=== PATIENT | female | born 1955 | race Caucasian/White ===

== ENCOUNTER 2017-08-29 18:36 | Emergency (ER) | payer OTHER ==
[~2017-08-29] VITALS: Ht 154.9 cm; Wt 90.7 kg
[~2017-08-29 18:36] MED LIST: LEVO150T PO; METR500T PO; QUET100T PO
--- NOTE | 2017-08-29 20:22 | NUR ---
Dr. Cohen at bedside for MSE.
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
[2017-08-29 20:47] LABS: BASOPHILS # (AUTO) 0.1 K/uL (0.0-8.0); BASOPHILS % (AUTO) 0.8 % (0.0-2.0); EOSINOPHILS # (AUTO) 0.3 K/uL (0.0-0.7); EOSINOPHILS % (AUTO) 4.1 % (0.0-7.0); HEMATOCRIT 41.1 % (31.2-41.9); HEMOGLOBIN 13.8 g/dL (10.9-14.3); LYMPHOCYTES # (AUTO) 2.4 K/uL (20.0-40.0); LYMPHOCYTES % (AUTO) 29.4 % (20.5-51.5); MEAN CORPUSCULAR HEMOGLOBIN 29.1 uug (24.7-32.8); MEAN CORPUSCULAR HGB CONC 34 g/dL (32.3-35.6); MEAN CORPUSCULAR VOLUME 86.5 fL (75.5-95.3); MONOCYTES # (AUTO) 0.7 K/uL (2.0-10.0); MONOCYTES % (AUTO) 9.2 % (0.0-11.0); NEUTROPHILS # (AUTO) 4.5 K/uL (1.8-8.9); NEUTROPHILS % (AUTO) 56.5 % (38.5-71.5); PLATELET COUNT (AUTO) 257 K/uL (179-408); RED BLOOD CELL COUNT(AUTO) 4.75 MIL/uL (3.63-4.92)
--- NOTE | 2017-08-29 20:52 | NUR ---
Pt out of ER for CT.
[2017-08-29 20:58] LABS: CARBON DIOXIDE 29 mmol/L (21-32); CHLORIDE 100 mmol/L (98-107); GLUCOSE 98 mg/dL (74-106); POTASSIUM 3.9 mmol/L (3.5-5.1); UREA NITROGEN, BLOOD 15 mg/dL (7-18)
[2017-08-29 21:02] LABS: ETHANOL < 3 MG/DL (0-0)
[2017-08-29 21:04] LABS: ACETAMINOPHEN < 2.0 ug/mL (10-30); ALANINE AMINOTRANSFERASE 48 U/L (14-59); ALKALINE PHOSPHATASE 64 U/L (50-136); ASPARTATE AMINOTRANSFERASE 26 U/L (15-37); BILIRUBIN,DIRECT 0.1 mg/dL (0.0-0.2); BILIRUBIN,TOTAL 0.4 mg/dL (0.2-1.0); TOTAL PROTEIN, SERUM 8.2 g/dL (6.4-8.2)
[2017-08-29 21:05] LABS: *BILIRUBIN,URIN NEGATIVE (NEGATIVE); *BLOOD, URINE NEGATIVE (NEGATIVE); *CLARITY,URINE CLEAR (CLEAR); *COLOR,URINE YELLOW (YELLOW); *KETONES,URINE NEGATIVE (NEGATIVE); *PROTEIN,URINE NEGATIVE (NEGATIVE); *UROBILINOGEN,URINE 0.2 E.U./dl (NORMAL); LEUKOCYTE ESTERASE ,URINE NEGATIVE (NEGATIVE); NITRITE, URINE NEGATIVE (NEGATIVE); UGLUCOSE NEGATIVE (NEGATIVE)
--- NOTE | 2017-08-29 21:08 | NUR ---
Notified Fitz Orozco [employer]ILY [employer] SPECIALIST for patient psych evaluation.
--- NOTE | 2017-08-29 21:10 | NUR ---
Patient back to ER from CT.
[2017-08-29 21:12] LABS: RBC,URINE 0-3 /HPF (0-3); WBC,URINE 0-3 /HPF (0-3)
[2017-08-29 21:13] LABS: BACTERIA,URINE NONE SEEN /HPF (NONE SEEN)
[2017-08-29 21:14] LABS: SQUAMOUS EPITHELIAL CELL,UR FEW /HPF (NONE SEEN)
[2017-08-29 21:19] LABS: *AMPHETAMINE, URINE NEGATIVE (NEGATIVE); *BARBITURATE, URINE NEGATIVE (NEGATIVE); *CANNABINOID, URINE NEGATIVE (NEGATIVE); *COCCAINE, URINE NEGATIVE (NEGATIVE); *OPIATE, URINE NEGATIVE (NEGATIVE); *PHENCYCLIDINE SCREEN,URINE NEGATIVE (NEGATIVE)
--- NOTE | 2017-08-29 21:30 | NUR ---
Fitz Orozco arrived to ER for patient psych evaluation.
--- NOTE | 2017-08-29 21:45 | NUR ---
Fitz Orozco at bedside for psych evaluation.
--- NOTE | 2017-08-29 22:21 | NUR ---
Patient discharged to home in stable conditon. Written and verbal after care instructions given. Patient verbalizes understanding of instructions. Patient ambulated out of ER with steady gait with dog, VSS, all belongings taken, no acute signs of distress.
[2017-08-29 22:24] VITALS: BP 148/89
== END 2017-08-29 22:20 | disposition home or self-care (01) ==
LOC: ER 18:36
DX: H53.16 Psychophysical visual disturbances (principal); E03.9 Hypothyroidism, unspecified; J45.909 Unspecified asthma, uncomplicated; Z88.2 Allergy status to sulfonamides; Z88.1 Allergy status to other antibiotic agents; Z79.899 Other long term (current) drug therapy
CPT/HCPCS: 36415; 70450; 80307; 84443; 84479; 85025; A4663; G0480; G0480-TC

== ENCOUNTER 2019-09-20 18:38 | Inpatient (IN) | payer OTHER ==
[~2019-09-20] VITALS: Ht 162.6 cm; Wt 99.3 kg
[2019-09-20] MEDS ORDERED: IV NORMAL SALINE 1000 ML BAG IV ONE (19:00)
[2019-09-20] MEDS ORDERED: CLINDAMYCIN PHOSPHATE IV 900 MG in IV DEXTROSE 5% 100 ML IV ONE (19:00)
--- NOTE | 2019-09-20 19:00 | NUR ---
Dr. Cohen at bedside for MSE.
[2019-09-20] MEDS ORDERED: ONDANSETRON 4 MG/2 ML VIAL IV ONE (19:15)
[2019-09-20] MEDS ORDERED: MORPHINE SULFATE 4 MG/1 ML DISP.SYRIN IV ONE (19:15)
[2019-09-20] MEDS ORDERED: MORPHINE SULFATE 4 MG/1 ML DISP.SYRIN ONE (19:21)
[2019-09-20] MEDS ORDERED: CLINDAMYCIN 900MG/D5W 100ML IVPB **ER PYXIS ONLY IJ ONE (19:21)
[2019-09-20] MEDS ORDERED: ONDANSETRON 4 MG/2 ML VIAL ONE (19:21)
[2019-09-20 19:46] LABS: BASOPHILS # (AUTO) 0.1 K/uL (0.0-8.0); BASOPHILS % (AUTO) 1.2 % (0.0-2.0); EOSINOPHILS # (AUTO) 0.4 K/uL (0.0-0.7); EOSINOPHILS % (AUTO) 5.2 % (0.0-7.0); HEMOGLOBIN 13.6 g/dL (10.9-14.3); LYMPHOCYTES # (AUTO) 2.4 K/uL (20.0-40.0); LYMPHOCYTES % (AUTO) 32.2 % (20.5-51.5); MEAN CORPUSCULAR HEMOGLOBIN 29.3 uug (24.7-32.8); MEAN CORPUSCULAR HGB CONC 34 g/dL (32.3-35.6); MEAN CORPUSCULAR VOLUME 86.5 fL (75.5-95.3); MONOCYTES # (AUTO) 0.7 K/uL (2.0-10.0); MONOCYTES % (AUTO) 8.9 % (0.0-11.0); NEUTROPHILS % (AUTO) 52.5 % (38.5-71.5); PLATELET COUNT (AUTO) 294 K/uL (179-408); RED BLOOD CELL COUNT(AUTO) 4.62 MIL/uL (3.63-4.92); WHITE BLOOD COUNT (AUTO) 7.6 K/uL (3.8-11.8)
[2019-09-20 19:56] LABS: CREATININE 0.9 mg/dL (0.6-1.3); POTASSIUM 3.6 mmol/L (3.5-5.1)
[2019-09-20 20:02] LABS: BILIRUBIN,DIRECT 0.1 mg/dL (0.0-0.2); BILIRUBIN,TOTAL 0.3 mg/dL (0.2-1.0); TOTAL PROTEIN, SERUM 8.1 g/dL (6.4-8.2)
--- NOTE | 2019-09-20 20:04 | NUR ---
Dr. Cohen on panel call with Saba Payton NP. Patient accepted for admission to [facility], diagnosis: left foot cellulitis.
--- NOTE | 2019-09-20 20:34 | NUR ---
Report given to Lela NAGEL Medsurg.
--- NOTE | 2019-09-20 20:40 | NUR ---
Admitted a 64 years old female with Diagnosis of Cellulitis. Patient reported she had a spider bite on left plantar area. Skin intact on affected area. No bite guardado noted. Patient reported pain on left lower extremity. Was given Morphine 4mg IV at the ER prior to arrival at the unit. Pain at 6/10 at this time and slightly tolerable per pt. IV site on right AC intact and patent. Denies any SOB. Routine admission care done. Plan of care initiated. Safety measure initiated and call vidal within reached. Continue to monitor.
[2019-09-20] MEDS ORDERED: MAGNESIUM HYDROXIDE 30 ML LIQUID UDC PO PRN (21:00)
[2019-09-20] MEDS ORDERED: ACETAMINOPHEN 325 MG TABLET PO PRN (21:00)
[2019-09-20] MEDS ORDERED: HYDROCODONE/APAP 5-325MG TABLET PO PRN (21:00)
[2019-09-20] MEDS ORDERED: Z GUARD REMEDY PASTE 57 GM TUBE TOP PRN (21:00)
[2019-09-20] MEDS ORDERED: ZOLPIDEM 5 MG TABLET PO PRN (21:00)
[2019-09-20] MEDS ORDERED: ONDANSETRON 4 MG/2 ML VIAL IV PRN (21:00)
[2019-09-20] MEDS: ENOXAPARIN SODIUM 40 MG/0.4 ML DISP.SYRIN SQ SCH (21:51)
[2019-09-20] MEDS: QUETIAPINE FUMARATE 100 MG TABLET PO SCH (22:12)
[2019-09-20 22:15] VITALS: BP 115/51
[2019-09-21] MEDS ORDERED: CLINDAMYCIN PHOSPHATE 600 MG/4 ML VIAL ONE (00:50)
[2019-09-21 04:42] VITALS: BP 119/54
[2019-09-21] MEDS: CLINDAMYCIN PHOSPHATE IV 600 MG in IV DEXTROSE 5% 100 ML IV SCH ×3 (05:06→21:00)
[2019-09-21 05:40] LABS: BASOPHILS # (AUTO) 0.1 K/uL (0.0-8.0); EOSINOPHILS # (AUTO) 0.4 K/uL (0.0-0.7); EOSINOPHILS % (AUTO) 6.1 % (0.0-7.0); HEMATOCRIT 37.1 % (31.2-41.9); HEMOGLOBIN 12.2 g/dL (10.9-14.3); LYMPHOCYTES # (AUTO) 2.8 K/uL (20.0-40.0); LYMPHOCYTES % (AUTO) 47.4 % (20.5-51.5); MEAN CORPUSCULAR HEMOGLOBIN 28.8 uug (24.7-32.8); MEAN CORPUSCULAR HGB CONC 33 g/dL (32.3-35.6); MEAN CORPUSCULAR VOLUME 87.7 fL (75.5-95.3); MONOCYTES # (AUTO) 0.6 K/uL (2.0-10.0); MONOCYTES % (AUTO) 9.6 % (0.0-11.0); NEUTROPHILS # (AUTO) 2.1 K/uL (1.8-8.9); NEUTROPHILS % (AUTO) 35.9 % (38.5-71.5); PLATELET COUNT (AUTO) 237 K/uL (179-408); RED BLOOD CELL COUNT(AUTO) 4.24 MIL/uL (3.63-4.92); WHITE BLOOD COUNT (AUTO) 5.9 K/uL (3.8-11.8)
[2019-09-21 06:00] LABS: MAGNESIUM 2.1 mg/dL (1.8-2.4); PHOSPHOROUS 5.7 mg/dL (2.5-4.9); POTASSIUM 3.9 mmol/L (3.5-5.1)
--- NOTE | 2019-09-21 06:07 | NUR ---
Slept well last night. In no acute distress. No adverse reaction noted from IV ABX. IV on right AC remains intact and patent. [place] 5/325mg PO given PRN for complain of pain on left LE and effective. Needs attended to and met. Safety measure maintained and call vidal within reached.
--- NOTE | 2019-09-21 10:30 | NUR ---
PATIENT SEEN AND EXAMINED BY HILARY GRAY DNP WITH ORDER FOR PHYSICIAN CONSULT AND NOTED
[2019-09-21 11:30] VITALS: BP 133/64
[2019-09-21] MEDS: LEVOTHYROXINE SODIUM 150 MCG TABLET PO SCH (11:42)
--- NOTE | 2019-09-21 14:00 | NUR ---
PATIENT AWARE THAT HER NORCO WAS DISCONTINUED OFFERED HIM TYLENOL STATED DID NOT WANT THIS AT THIS TIME WILL CONTINUE TO OBSERVE AND PROVIDE SAFE AND THERAPEUTIC ENVIRONMENT.
--- NOTE | 2019-09-21 14:16 | NUR ---
YULI TAM HERE SEE PATIENT WITH NO NEW ORDERS AT THIS TIME
--- NOTE | 2019-09-21 14:48 | NUR ---
CALL RECEIVED FROM YULI TAM STATED ORDERED XRAY OF THE LEFT FOOT AND NOTED.
--- NOTE | 2019-09-21 15:46 | NUR ---
PATIENT REQUESTING FOR NORCO FOR PAIN BROUGHT HER NORCO GAVE IT TO HER BUT SHE INFORMED ME THAT SHE ALREADY TOOK A NORCO STATED FROM HER PURSE SO I INFORMED HER THAT SHE IS NOT ALLOWED TO HAVE MEDICATIONS IN HER BAG ASKED HER TO GIVE ME ALL THE MEDICATIONS IN HER BAG FOR SAFE KEEPING THE HOSPITAL PROTOCOL BUT SHE REFUSED TO GIVE ME HER BAG TO CHECK BUT STATED THAT THE NORCO SHE TOOK WAS HER LAST PILL AND SHE HAS NO MORE SO NORCO THAT I BROUGHT TO GIVE HER WAS WASTED WITHNESSED BY ANOTHER NURSE.
[2019-09-21] MEDS ORDERED: QUETIAPINE FUMARATE 100 MG TABLET PO SCH (18:00)
--- NOTE | 2019-09-21 18:00 | NUR ---
RESTING WITH NO C/O AT THIS TIME WILL CONTINUE TO OBSERVE AND PROVIDE COMFORT NEEDED
[2019-09-21] MEDS: ATORVASTATIN 10 MG TABLET PO SCH (21:00)
--- NOTE | 2019-09-21 21:00 | NUR ---
PATIENT REQUESTED FOR PAIN MEDICATION GIVEN ORDERED AND STATED HELPFUL.REMAIN ON IV ATB ORDERED WITH NO ADVERSE OR ALLERGIC REACTIONS ORDERED.CALL LIGHTS AND PERSONAL BELONGINGS PLACED WITHIN EASY REACH MADE COMFORTABLE WILL CONTINUE TO OBSERVE.
[2019-09-21] MEDS: HYDROCODONE/APAP 5-325MG TABLET PO PRN (21:01)
[2019-09-21] MEDS: ENOXAPARIN SODIUM 40 MG/0.4 ML DISP.SYRIN SQ SCH (21:02)
[2019-09-21 21:06] VITALS: BP 123/70
[2019-09-21] MEDS: QUETIAPINE FUMARATE 100 MG TABLET PO SCH (23:55)
[2019-09-22] MEDS: CLINDAMYCIN PHOSPHATE IV 600 MG in IV DEXTROSE 5% 100 ML IV SCH ×3 (05:39→22:01)
[2019-09-22] MEDS: HYDROCODONE/APAP 5-325MG TABLET PO PRN ×4 (06:34→22:50)
[2019-09-22] MEDS: LEVOTHYROXINE SODIUM 150 MCG TABLET PO SCH ×2 (06:36→10:04)
--- NOTE | 2019-09-22 06:39 | NUR ---
AWOKEN PATIENT FOR IV ANTIBIOTICS ORDERED SHE REQUESTED FOR PAIN MEDICATIONS GIVEN ORDERED AND SHE REFUSED HER SYNTHROID STATED NOT READY TO TAKE IT YET WILL TALK TO HER DOCTOR FIRST BEFORE SHE ACCEPTS IT HER RIGHTS TO REFUSE RESPECTED.
--- NOTE | 2019-09-22 07:40 | NUR ---
patient is in bed, sleeping, no distress noted
--- NOTE | 2019-09-22 10:32 | NUR ---
PATIENT REQUESTED SYNTHROID TO BE GIVEN, SINCE SHE DID NOT WANT TO TAKE IN THE MORNING SCHEDULED TIME, TEACHING PROVIDED TO PATIENT TO TAKE SYNTHROID IN THE MORNING, ON EMPTY STOMACH TO AVOID THE ERRATIC ABSORPTION OF HORMONE, OR FOR BETTER ABSORPTION, PATIENT VERBALIZED UNDERSTANDING OF IT, HOWEVER STATED THAT SHE ALWAYS TAKE IT AT THIS TIME. Addendum: 09/22/19 at 1057 by DANDY ODONNELL RN, RN MD CHAND
--- NOTE | 2019-09-22 10:57 | NUR ---
PATIENT REQUESTED FOR REGULAR DIET,AND MOM, ORDER NOTED. APPROVED WITH
[2019-09-22 12:00] VITALS: BP 105/51
[2019-09-22] MEDS: MELOXICAM 7.5 MG TABLET PO SCH ×2 (12:00→12:14)
[2019-09-22] MEDS: MAGNESIUM HYDROXIDE 30 ML LIQUID UDC PO PRN (12:34)
--- NOTE | 2019-09-22 12:45 | NUR ---
PATIENT REQUESTED FOR PAIN MEDICATION, OFFERED AND THEN REFUSED, REFUSED MOBIC WELL, PATIENT STATED SHE KNOWS HER MEDICATIONS VERY WELL, AND WOULD NOT TAKE MOBIC. PATIENT RIGHT TO REFUSE RESPECTED
[2019-09-22] MEDS ORDERED: SENNOSIDES 1 TABLET PO PRN (14:30)
[2019-09-22] MEDS ORDERED: MIRALAX 17 GM POWD.PACK PO PRN (14:30)
--- NOTE | 2019-09-22 14:50 | NUR ---
patient is alert, oriented x4, verbally responsive, no sob, resp even nonlabored,skin warm and dry to touch, patient is very needy, manupulative, requests frequent medication for multiple purposes, such as patient says she is constipated, Milk of magnesium is administered as ordered, right away requesting for double dose of miralax and 4 senna. explained to patient to follow MD instructions. patient stated, " I know my body and I take double dose of it" explained to patient that medication only be given as ordered by MD and wait for effectiveness.
[2019-09-22 16:00] VITALS: BP 125/56
[2019-09-22] MEDS: QUETIAPINE FUMARATE 100 MG TABLET PO SCH (20:48)
[2019-09-22] MEDS: ATORVASTATIN 10 MG TABLET PO SCH (20:48)
[2019-09-22] MEDS: ENOXAPARIN SODIUM 40 MG/0.4 ML DISP.SYRIN SQ SCH (20:49)
[2019-09-22] MEDS ORDERED: LACTULOSE 20 G/30 ML LIQUID UDC PO PRN (21:00)
[2019-09-22 21:08] VITALS: BP 125/43
[2019-09-22] MEDS: CULTURELLE CAPSULE PO SCH (21:52)
[2019-09-23] MEDS: HYDROCODONE/APAP 5-325MG TABLET PO PRN ×4 (05:17→22:52)
[2019-09-23] MEDS: CLINDAMYCIN PHOSPHATE IV 600 MG in IV DEXTROSE 5% 100 ML IV SCH (06:16)
[2019-09-23 06:22] VITALS: BP 154/79
--- NOTE | 2019-09-23 07:00 | NUR ---
Received patient in bed complaining of constant urination and no bowel movement. Patient requested urinalysis to rule out UTI and lactulose to relive constipation as well as probiotic to take daily. Saba Rocha made aware, orders endorsed. Patient is Axox4, verbally responsive and makes needs known. No signs of SOB, distress noted. Patient is concerned that she is urinated frequently no burning sensation. Patient states her "kidneys are over working." Patient skin is clean warm and dry to touch. Patient is very particular when her medications are given, wants it at different times. IV antibiotic infused and medications taken. Patient complained of painx2, gave [place], effective. All needs attended to, kept comfortable. Will continue to monitor. Will endorse report to next shift.
--- NOTE | 2019-09-23 08:00 | NUR ---
VSS 98.1-79-18 BP 154/79. SATS 98% ON ROOM AIR. COLOR GOOD AND GENERAL APPEARANCE STABLE. PATIENT IS OOB WITH BRPS WITHOUT ASSISTANCE. PATIENT IS OBVIOUSLY MORBIDLY OBESE BUT SKIN IS WARM, DRY, AND INTACT WITH #20 ANGIO TO RIGHT AC. ABDOMEN SOFTLY DISTENDED WITH +BOWEL SOUNDS. LUNGS CTA TO BUL. NO JVD WITH ALL PERIPHERAL PULSES EASILY PALPABLE. DENIES PAINS. URINE UA OBTAINED AND SENT TO LAB FOR PENDING STATUS. PATIENT CURRENTLY DENIES BREAKFAST AND STATES THAT WHE WANTS TO EAT LATER. DENIES PAINS AND SHOWS NO SIGNS OF ACUTE CARDIAC/RESPIRATORY DISTRESS OR SUPPRESSION.
--- NOTE | 2019-09-23 09:00 | NUR ---
NURSE OFFERED AM MED ON TIME BUT PATIENT REFUSES AT THIS TIME AND WON'T EAT BREAKFAST. NURSE WILL REASSESS PATIENT'S NEEDS IN ONE HOUR. PATIENT ENCOURAGED TO CALL NURSE FOR ANY NEEDS. PATIENT SHOWS NO SIGNS OF DISTRESS.
[2019-09-23 09:50] LABS: *BILIRUBIN,URIN NEGATIVE (NEGATIVE); *BLOOD, URINE NEGATIVE (NEGATIVE); *CLARITY,URINE CLEAR (CLEAR); *COLOR,URINE YELLOW (YELLOW); *KETONES,URINE NEGATIVE (NEGATIVE); *UROBILINOGEN,URINE 0.2 E.U./dl (NORMAL); LEUKOCYTE ESTERASE ,URINE NEGATIVE (NEGATIVE); NITRITE, URINE NEGATIVE (NEGATIVE); UGLUCOSE NEGATIVE (NEGATIVE)
[2019-09-23] MEDS: CULTURELLE CAPSULE PO SCH ×2 (10:20→20:33)
--- NOTE | 2019-09-23 10:29 | NUR ---
PATIENT TAKES CULTURELLE CAPSULE NOW AND REQUESTS MEDS FOR CONSTIPATION. NURSE GIVES SENOKOT 2 TABS PO AND LACTULOSE 30 CC PO PRN FOR CONSTIPATION. PATIENT ALSO C/O 7/10 GENERALIZED PAIN- NURSE GIVES HER NORCO 5/325 MG PO (2 TABS) PO PRN. PATIENT SEEMS TO LIKE PRIVACY AND WANTS STAFF TO ENTER ROOM ONLY NEEDED. PATIENT FURTHER STATES THAT SHE WANTS TO TAKE MOBIC WITH SYNTHROID AT 11:00. NURSE WILL COMPLY.
[2019-09-23] MEDS: LEVOTHYROXINE SODIUM 150 MCG TABLET PO SCH (11:25)
[2019-09-23] MEDS: MELOXICAM 7.5 MG TABLET PO SCH (11:26)
[2019-09-23 12:00] VITALS: BP_SYST 122; BP_SYST 150; BP_DIAS 48; BP_DIAS 84
--- NOTE | 2019-09-23 12:00 | NUR ---
VSS 98.0-82-20 BP 150/84. SATS 98% ON ROOM AIR. PATIENT RESTS QUIETLY. RECEIVED MOBIC AND SYNTHROID AT APPROX. 11:20 A.M. PATIENT HAS HAD NO NEW C/O PAINS. STABLE.
[2019-09-23] MEDS: MAGNESIUM HYDROXIDE 30 ML LIQUID UDC PO PRN (15:31)
[2019-09-23 16:00] VITALS: BP 149/61
--- NOTE | 2019-09-23 16:00 | NUR ---
VSS 97.8-72-22 BP 149/61. SATS 95% ON ROOM AIR. PATIENT DID HAVE A SMALL BM AND FEELS SHE NEEDS TO HAVE MORE. NURSE ALSO GAVE MOM THIS AFTERNOON. NO SIGNS OF DISTRESS. STABLE.
--- NOTE | 2019-09-23 18:00 | NUR ---
NURSE REPEATED NORCO 5/325 MG PO PRN AT 17:00 FOR THE RELIEF OF PAIN. REMAINS STABLE. ATE 100% OF DINNER WITHOUT DIFFICULTY.
--- NOTE | 2019-09-23 20:00 | NUR ---
RECEIVED PATIENT AWAKE IN BED. A/O X4. DENIES ANY PAIN AT THIS TIME. NO RESP. DISTRESS NOTED. VS WNL. HEPLOCK INTAKE AND PATENT NOTED TO RIGHT AC #20 GAUGE. CALL LIGHT IN REACH. ALL NEEDS ATTENDED. WILL CONTINUE TO MONITOR AND ASSESS.
[2019-09-23 20:04] VITALS: BP 122/56
[2019-09-23] MEDS: ENOXAPARIN SODIUM 40 MG/0.4 ML DISP.SYRIN SQ SCH (20:32)
[2019-09-23] MEDS: QUETIAPINE FUMARATE 100 MG TABLET PO SCH (20:33)
[2019-09-23] MEDS: ATORVASTATIN 10 MG TABLET PO SCH (20:33)
[2019-09-23] MEDS: DOXYCYCLINE HYCLATE 100 MG TABLET PO SCH (20:34)
[2019-09-23] MEDS ORDERED: diphenhydrAMINE 25 MG CAP PO PRN (21:00)
[2019-09-24 04:04] VITALS: BP 122/49
[2019-09-24] MEDS: HYDROCODONE/APAP 5-325MG TABLET PO PRN ×2 (04:55→11:06)
--- NOTE | 2019-09-24 06:33 | NUR ---
PATIENT RESTING IN BED. NO C/O PAIN AT THIS TIME. PATIENT WAS GIVEN NORCO AT 0500 FOR LEFT FOOT PAIN. VSS. SLEPT AT INTERVALS. PATIENT VERY NEEDY THROUGHOUT THE NIGHT. CALL LIGHT IN REACH. ALL NEEDS ATTENDED. WILL CONTINUE TO MONITOR AND ASSESS.
--- NOTE | 2019-09-24 07:30 | NUR ---
PATIENT SLEEPING IN BED; PATIENT WILL CONTINUE TO BE MONITORED.
[2019-09-24] MEDS: CULTURELLE CAPSULE PO SCH ×2 (08:52→11:06)
[2019-09-24] MEDS: MELOXICAM 7.5 MG TABLET PO SCH (08:52)
[2019-09-24] MEDS: DOXYCYCLINE HYCLATE 100 MG TABLET PO SCH ×2 (09:00→11:08)
[2019-09-24 11:35] VITALS: BP 121/50
[2019-09-24] MEDS ORDERED: ATOR10TA PO (11:44)
[2019-09-24] MEDS ORDERED: DIPH25TA27 PO (11:44)
[2019-09-24] MEDS ORDERED: DOXY100T2 PO (11:44)
[2019-09-24 15:35] VITALS: BP 142/65
--- NOTE | 2019-09-24 16:00 | NUR ---
PATIENT VERY RELUCTANT TO DISCHARGE; PATIENT WITH CONTRADICTING STATEMENTS TO CASE MANAGEMENT AND SELF . PATIENT STATED SHE DID NOT WANT DISCLOSE ASSISTED LOCATION THEN STATED SHE DID; SHE REFUSED TO SIGN DISCHARGE PAPER BUT STATED SHE DIDN'T. PATIENT WITH STABLE VITAL UPON DISCHARGE. PATIENT THEN SAID SHE WOULD GET A TAXI CAB TO ASSISTED. PATIENT GIVEN FREE WHEELCHAIR FOR ASSISTANCE.
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
== END 2019-09-24 16:00 | disposition home or self-care (01) | DRG 383 ==
LOC: ER 18:38 → MEDSURG3 20:29
PROVIDERS: ADMIT Nurse Practitioner Acute Care; ATTEND Nurse Practitioner Acute Care
DX: L03.116 Cellulitis of left lower limb (principal); D68.69 Other thrombophilia; E66.01 Morbid (severe) obesity due to excess calories; E03.9 Hypothyroidism, unspecified; E78.5 Hyperlipidemia, unspecified; J45.909 Unspecified asthma, uncomplicated; M19.90 Unspecified osteoarthritis, unspecified site; R73.03 Prediabetes; Z88.2 Allergy status to sulfonamides; Z68.37 Body mass index [BMI] 37.0-37.9, adult; Z76.5 Malingerer [conscious simulation]; F99 Mental disorder, not otherwise specified; Z88.1 Allergy status to other antibiotic agents; M72.2 Plantar fascial fibromatosis; M77.52 Other enthesopathy of left foot and ankle; R39.15 Urgency of urination; G89.29 Other chronic pain
CPT/HCPCS: 36415; 73630; 83735; 84100; 84443; 85025; 87086; A4663; G0378; J1650; J2270; J2405; J3490; J7030; J7050; J7060